=== PATIENT | female | born 1945 ===

== ENCOUNTER 2017-05-28 11:57 | Emergency (ER) | payer MEDICARE ==
[2017-05-28 12:29] VITALS: BMI 25.9
[2017-05-28 12:30] VITALS: TEMP 98.1; O2SAT 97
[2017-05-28] MEDS ORDERED: Naproxen 550 mg Tab PO STA (13:10)
[2017-05-28] MEDS ORDERED: Naproxen 550 mg Tab PO ONE (13:30)
[2017-05-28 13:58] LABS: SQUAMOUS EPITHIAL 1 /hpf (0-5); URINE BILIRUBIN NEGATIVE (NEGATIVE); URINE BLOOD 1+ (NEGATIVE); URINE CLARITY Clear (Clear); URINE COLOR Straw (YELLOW); URINE GLUCOSE (UA) NORMAL (Normal); URINE LEUKOCYTE ESTERASE TRACE Leu/uL (Negative); URINE NITRATE NEGATIVE (NEGATIVE); URINE PROTEIN NEGATIVE (NEGATIVE); URINE UROBILINOGEN NORMAL mg/dL (0.2-1.0)
--- NOTE | 2017-05-28 14:36 | C.PDOC ---
History Of Present Illness 72 y/o female presents to the ED with complaints of lower back pain. Pt fell 1 week ago and was initially evaluated [place] [facility] [place] completed with no fracture. Pain persists. Pthas had history of chronic back pain and notes the pain feels similar, no new symptoms. Denies dysuria, frequency, urinary or bowel incontinence, weakness, numbness, abdominal pain or any other complaints. Pt also reports constipation, no BM x4 days. Denies taking any pain medications at home, concerned the meds maker her constipated. Pthas had history of chronic back pain and notes the pain feels similar, no new symptoms. Time Seen by Provider: 05/28/17 13:01 Chief Complaint (Nursing): Back Pain History Per: Patient History/Exam Limitations: no limitations Onset/Duration Of Symptoms: Days, Gradual Current Symptoms Are (Timing): Worse Quality Of Discomfort: "Pain" Severity: Moderate Previous Symptoms: None Associated Symptoms: None Recent travel outside of the [place]: No Past Medical History Reviewed: Historical Data, Nursing Documentation, Vital Signs Vital Signs: Last Vital Signs Temp 98.1 F 05/28/17 12:29 Pulse 78 05/28/17 15:30 Resp 18 05/28/17 15:30 BP 132/75 05/28/17 15:30 Pulse Ox 97 05/28/17 15:30 Family History: States: Unknown Family Hx - Social History Hx Alcohol Use: No Hx Substance Use: No - Immunization History Hx Tetanus Toxoid Vaccination: Yes Hx Influenza Vaccination: Yes Hx Pneumococcal Vaccination: Yes Review Of Systems Except As Marked, All Systems Reviewed And Found Negative. Constitutional: Negative for: Fever Gastrointestinal: Negative for: Abdominal Pain, Constipation Genitourinary: Negative for: Dysuria, Frequency, Incontinence Musculoskeletal: Positive for: Back Pain Neurological: Negative for: Weakness, Numbness Physical Exam - Physical Exam Appears: Non-toxic, No Acute Distress Skin: Warm, Dry, No Rash Head: Atraumatic, Normacephalic Eye(s): bilateral: Normal Inspection, EOMI Nose: Normal Oral Mucosa: Moist Neck: Normal, Normal ROM, Supple Chest: Symmetrical Cardiovascular: Rhythm Regular, No Murmur Respiratory: Normal Breath Sounds, No Rales, No Rhonchi, No Wheezing Gastrointestinal/Abdominal: Normal Exam, Soft, No Tenderness Back: Paraspinal Tenderness (bilateral lower lumbar) Extremity: Normal ROM Extremity: Bilateral: Atraumatic Neurological/Psych: Oriented x3, Normal Speech, Normal Cognition Gait: Steady ED Course And Treatment O2 Sat by Pulse Oximetry: 97 (room air) Pulse Ox Interpretation: Normal - CT Scan/US CT Other Rad Studies (CT/US): Read By Radiologist, Radiology Report Reviewed CT/US Interpretation: Accession No. : [id number]. Patient Name / ID : ERICA IVERSON / [id number]. Exam Date : 05/28/2017 13:47:36 ( Approved ). Study Comment : Sex / Age : F / [id number]. Creator : David Nolen MD. Dictator : David Nolen MD. High School Science Tutor : Liner Helper : David Nolen MD. Approver2 : Report Date : 05/28/2017 14:34:22. My Comment : . PROCEDURE : CT Lumbar Spine without contrast. HISTORY: trauma. COMPARISON: None. TECHNIQUE: Axial computed tomography images were obtained of the lumbar spine without the use of intravenous contrast. Coronal and sagittal reformatted images were created and reviewed. Radiation dose: Total exam DLP = 972.70 mGy- cm. This CT exam was performed using one or more of the following dose reduction techniques: Automated exposure control, adjustment of the mA and/or kV according to patient size, and/or use of iterative reconstruction technique. FINDINGS: VERTEBRAE: Vertebral bodies are maintained height. The transverse processes and posterior elements are intact. There is a Schmorl's node in the superior L4 vertebral endplate and a small Schmorl's node in the inferior L3 vertebral endplate. There is mild dextroscoliotic curvature. There is no listhesis. DISCS/SPINAL CANAL/NEURAL FORAMINA: L1-2: . Unremarkable. L2-3: Unremarkable. L3-4: Mild diffuse disc bulge. No focal herniation. No central spinal stenosis. No neural foraminal stenosis. L4-5: Unremarkable. L5-S1: Disc height is maintained. No bulge or herniation. There is productive bony change laterally, at the level of the lateral recess and neural foramina. There is moderate to severe bilateral neural foraminal stenosis. PARASPINAL SOFT TISSUES: Unremarkable. OTHER FINDINGS: Status post hysterectomy. IMPRESSION: No evidence of fracture or dislocation. Mild dextroscoliosis. Moderate to severe bilateral neural foraminal stenosis at L5- S1. Mild disc bulge at L3-4. Progress Note: Plan: CT lumbar spine, UA, naproxen. On re-evaluation, pain improved. Pt ambulating without assistance. No change in senstaion. Pt given copies of CT and instructed outpt follow up. Sludge Filtration Attendant used to ensure understanding. Disposition - Disposition Referrals: Ilene Kulkarni MD [Staff Provider] - Disposition: HOME/ ROUTINE Disposition Time: 14:42 Condition: STABLE Additional Instructions: Vaya a cortes mdico o la clnica en 1-3 resendiz sin falta, para mas evaluacin. Amaya los medicamentos heydi indicado. Volver a la elidia de emergencia en cualquier momento si los sntomas persisten o empeoran. Prescriptions: Naproxen [Naprosyn] 1 tab PO BID PRN #20 tab PRN Reason: Pain Polyethylene Glycol 3350 [Miralax] 17 gm PO DAILY #85 gm Instructions: Acute Low Back Pain (ED) Print Language: [place] - Clinical Impression Clinical Impression: Low back pain - PA / WOOD FLOOR LAYER / Resident Statement MD/DO has reviewed & agrees with the documentation as recorded. - Scribe Statement The provider has reviewed the documentation as recorded by the Enedeliaiblela Clarke All medical record entries made by the Jessee were at my direction and personally dictated by me. I have reviewed the chart and agree that the record accurately reflects my personal performance of the history, physical exam, medical decision making, and the department course for this patient. I have also personally directed, reviewed, and agree with the discharge instructions and disposition.
[2017-05-28 15:52] VITALS: BP 132/75; PULSE 78; RESP 18
== END 2017-05-28 15:35 | disposition home or self-care (01) ==
LOC: C.ER 11:57
DX: M54.5 Low back pain (principal)

== ENCOUNTER 2018-12-25 08:58 | Outpatient (CLI) | payer MEDICARE | END 2018-12-25 08:59 | disposition home or self-care (01) | LOC: C.PAT 08:58 | DX: K80.10 Calculus of gallbladder with chronic cholecystitis without obstruction (principal) ==

== ENCOUNTER 2018-12-30 05:59 | Day surgery (SDC) | payer MEDICARE ==
[2018-12-25 09:36] VITALS: BMI 33.5
[2018-12-30] MEDS ORDERED: ceFAZolin 1 gm in NS 0 GM/0 ML BAG IVPB ONE (07:25)
[2018-12-30] MEDS ORDERED: Lidocaine/Epinephrine 1% 1:100000 10 ML IJ ONE (07:25)
[2018-12-30] MEDS ORDERED: Bupivacaine 0.25% 20 ML INJ IJ ONE ×2 (07:25→08:52)
[2018-12-30] MEDS ORDERED: Midazolam 2 MG/2 ML VIAL ONE (07:41)
[2018-12-30] MEDS ORDERED: Rocuronium 10 mg/ml (5 ml) ONE (07:41)
[2018-12-30] MEDS ORDERED: Vancomycin 1 gm/D5W 200 ml 1 GM/200 ML BAG IVPB ONE (07:51)
[2018-12-30] MEDS ORDERED: Clindamycin 600mg/50ml NS 0 MG/0 ML BAG IVPB ONE (07:51)
[2018-12-30] MEDS ORDERED: Propofol 10 mg/ml Inj (20 ML) ONE (08:07)
[2018-12-30] MEDS ORDERED: Neostigmine 1:1000 (1 mg/ml) Inj ONE (08:44)
[2018-12-30] MEDS ORDERED: Sodium Chloride 0.9% 20 ML IV ONE (08:54)
--- NOTE | 2018-12-30 09:27 | PCM.SURG1 ---
Surgeon's Initial Post Op Note - Surgeon's Notes Surgeon: Dr. Stevens Assistant Professor Of Religion: Dr. Desir PGY3; Jack Maloney Type of Anesthesia: General Endo Pre-Operative Diagnosis: cholelithaisis Operative Findings: see dictation Post-Operative Diagnosis: same Operation Performed: robotic cholecystectomy Specimen/Specimens Removed: obinna Estimated Blood Loss: EBL {In ML}: 5 Blood Products Given: N/A Drains Used: No Drains Post-Op Condition: Good Date of Surgery/Procedure: 12/30/18 Time of Surgery/Procedure: 09:27
[2018-12-30] MEDS ORDERED: Oxycodone/Acetaminophen 5/325 mg Tab PO PRN (09:30)
[2018-12-30] MEDS ORDERED: Lactated Ringer's 1,000 ML IV ONE (10:15)
[2018-12-30] MEDS: HYDROmorphone 0.5 mg/0.5 ml ISec IVP PRN ×2 (10:20→11:15)
[2018-12-30 14:20] VITALS: PULSE 84; RESP 16; TEMP 97.8; O2SAT 98
[2018-12-30 16:01] VITALS: BP 115/76
--- NOTE | 2018-12-30 20:25 | OP ---
PROCEDURE DATE: 12/30/2018 PREOPERATIVE DIAGNOSES: 1. Chronic cholecystitis and cholelithiasis. 2. Abdominal pain. POSTOPERATIVE DIAGNOSES: 1. Chronic cholecystitis and cholelithiasis. 2. Extensive peritoneal adhesion. PROCEDURES: 1. Robotic cholecystectomy. 2. Robotic enterolysis and lysis of adhesion. SURGEON: Noam Stevens MD 4TH GRADE MATH TEACHER: PAULO Milian and Kirsty Desir DO, PGY-3, Resident ANESTHESIA: General endotracheal tube anesthesia. ESTIMATED BLOOD LOSS: Around 10 mL. DRAIN: None. PATHOLOGY: The gallbladder with gallstone was sent for pathology. COMPLICATIONS: None. INTRAOPERATIVE FINDINGS: The patient had changes of chronic cholecystitis and cholelithiasis and the patient had omental as well as duodenal and colonic adhesion to the gallbladder, and enterolysis as well as lysis of adhesion was done. DESCRIPTION OF PROCEDURE: On intraoperative steps, this 73-year-old female who was diagnosed with chronic cholecystitis and cholelithiasis and the patient was consented for the robotic cholecystectomy, possible open, brought to the OR, placed supine on the operating table. After induction of anesthesia, the abdomen was prepped and draped in the usual sterile fashion. Supraumbilical transverse incision was made using the open technique. Peritoneal cavity was entered. Pneumo was created. A 3.8-mm port was placed. Robot was brought in. Camera arm as well as arm 1 and arm 2 was docked and the omental adhesion to the gallbladder as well as duodenal and colonic adhesions were . Enterolysis as well as lysis of adhesion was done in order to facilitate the operation. The patient also had hepatomegaly and the gallbladder was retracted cranially to identify the body of the gallbladder as well as the infundibulum and the dissection was carried down to the Calot's triangle. The anterior and posterior leaflet of the peritoneum was dissected and a top-down approach was done. Critical view of the safety was also done and intraoperative Firefly was used to identify the ductal anatomy. Cystic duct and common bile duct junction was identified and the cystic duct and cystic artery was clipped at three places and cut in between two clips nearby gallbladder and gallbladder was dissected free from the gallbladder fossa, taken in EndoCatch bag, taken out through the umbilical port site and sent off the table for the pathology. There was a proper hemostasis in each and every part of the procedure. The third procedure is a robotic bilateral TAP block placement. Before undocking the robot, the 30:30 mL of Marcaine as well as the Decadron mixture was injected in the right and left transverse abdominis muscles plane area, and after proper TAP block bilaterally, all the instrument was taken out, robot was undocked. All the port was taken out under vision. Pneumo was deflated. Umbilical port site was closed in two layers, the fascia with 0 Vicryl interrupted sutures, skin with 4-0 Monocryl and dry sterile dressing was applied. The patient tolerated procedure well. Count of instrument and gauze was correct. There was no apparent complication. The patient was extubated in OR, sent to the postanesthesia care unit in stable condition. Noam Stevens MD
== END 2018-12-30 15:30 | disposition home or self-care (01) ==
LOC: C.SDS 05:59
PROVIDERS: ATTEND Surgery Surgical Critical Care
DX: K80.10 Calculus of gallbladder with chronic cholecystitis without obstruction (principal); K66.0 Peritoneal adhesions (postprocedural) (postinfection)
CPT/HCPCS: 47562; 82948; 88304; J1100; J1170; J2001; J2250; J2405; J2704; J2710; J3010; J3370; J7120

== ENCOUNTER 2019-02-21 09:46 | Day surgery (SDC) | payer MEDICARE ==
[2018-12-25 09:35] VITALS: BMI 33.5
[2019-02-21 10:58] VITALS: RESP 18
[2019-02-21] MEDS ORDERED: Vancomycin 1 gm/D5W 200 ml 0 GM/0 ML BAG IVPB ONE (12:38)
[2019-02-21] MEDS ORDERED: Lidocaine/Epinephrine 1% 1:100000 10 ML IJ ONE (12:38)
[2019-02-21] MEDS ORDERED: Bupivacaine 0.25% 20 ML INJ IJ ONE (12:38)
[2019-02-21 14:49] VITALS: BP 118/62; PULSE 74; TEMP 98; O2SAT 97
--- NOTE | 2019-02-21 14:53 | PCM.SURG1 ---
Surgeon's Initial Post Op Note - Surgeon's Notes Surgeon: Dr. soliman Electric Truck Driver: Dr. Kristen aHynes, PGY 1 Type of Anesthesia: Local Pre-Operative Diagnosis: right neck mass vs cyst Operative Findings: see operative report Post-Operative Diagnosis: right neck mass Operation Performed: excision of right neck mass Specimen/Specimens Removed: right neck tissue/mass Estimated Blood Loss: EBL {In ML}: 5 Blood Products Given: N/A Drains Used: No Drains Post-Op Condition: Good Date of Surgery/Procedure: 02/21/19 Time of Surgery/Procedure: 12:30
--- NOTE | 2019-02-21 22:27 | OP ---
PROCEDURE DATE: 02/21/2019 PREOPERATIVE DIAGNOSIS: Right neck lesion. POSTOPERATIVE DIAGNOSIS: Right neck lesion, approximately 1 x 1 cm size, possible lymph node. PROCEDURE DONE: Excision of the right neck lesion, 1 x 1 cm size. SURGEON: Noam Stevens MD OPERATIONS PLANNER: Kristen, PGY-1 resident ANESTHESIA: Local anesthesia plus monitoring. COMPLICATIONS: None. DRAINS: None. PATHOLOGY: The right neck lesion was sent for the pathology. It seems that it was a lymph node. DESCRIPTION OF PROCEDURE: On intraoperative steps, this is a 73-year-old female who was diagnosed with a right neck superficial skin lesion. The patient was consented for the excision of the right neck lesion, brought to the OR, and placed supine on the operating table. The right neck was prepped and draped in the usual sterile fashion. Local anesthesia was injected. A transverse incision was made. Upper and lower flaps were created. Medial and lateral dissection was done. The dissection was carried down deep up to the platysma. The patient was found to have one lymph node underneath the skin that was completely excised. Hemostasis was achieved. The wound was irrigated. The specimen was sent off the table for the pathology. The wound was closed in two layers, subcu with a 2-0 Vicryl, skin with a 4-0 Monocryl. Dry sterile dressing was applied. The patient tolerated the procedure well. Count of instrument and gauze was correct. There were no apparent complications. Noam Stevens MD
== END 2019-02-21 14:05 | disposition home or self-care (01) ==
LOC: C.SDS 09:46
PROVIDERS: ATTEND Surgery Surgical Critical Care
DX: L72.3 Sebaceous cyst (principal)

== ENCOUNTER 2019-04-10 09:56 | Outpatient (CLI) | payer MEDICARE | END 2019-04-10 09:57 | disposition home or self-care (01) | LOC: C.MAMMO 09:56 | DX: Z12.31 Encounter for screening mammogram for malignant neoplasm of breast (principal) ==